=== PATIENT | female | born 1945 | race Caucasian/White ===

== ENCOUNTER 2017-04-29 09:17 | Inpatient (IN) | payer MEDICARE ==
[~2017-04-29] VITALS: Ht 157.5 cm; Wt 66.8 kg
[~2017-04-29 09:17] MED LIST: ALPH300T2 PO; ASCO10004 PO; AZEL137S4 NAS; B12 PO; BUPIVACAINE/PF 0.25% ONE; BUPR150T6 PO; CO Q10 PO; DHEA PO; DILT240T PO; EPINEPHRINE 1 MG/ML, 1ML ONE; ESTR1TAB15 PO; GAS X PO; HYDR-3245 PO; INUL1TAB4 PO; KETOROLAC 60 MG/2 ML ONE; LEVO50TA5 PO; LISI-167 PO; MEDR2.5T30 PO; OLOP2.5D EACHEYE; PREVAGEN PO; PSYL3.4P5 PO; ROPIvacaine/PF 0.2%, 20 ML ONE; SENN1TAB67 PO; SODIUM CHLORIDE 0.9% 50 ML ONE; TRANEXAMIC ACID 100 MG/ML, 10ML ONE; VIT1CAPS42 PO
[2017-04-29] MEDS ORDERED: VANCOMYCIN PMX 1GM/200ML 200 ML IV ONE (09:30)
[2017-04-29] MEDS ORDERED: METOPROLOL 1 MG/ML, 5ML IV PRN (10:00)
[2017-04-29] MEDS ORDERED: hydrALAzine 20 MG/ML, 1ML IV PRN (10:00)
[2017-04-29] MEDS ORDERED: LABETALOL 5MG/ML, 20ML IV PRN (10:00)
[2017-04-29] MEDS ORDERED: HYDROcodone/APAP 7.5-325MG/15ML UDC PO PRN (10:00)
[2017-04-29] MEDS ORDERED: EPHEDRINE 50 MG/ML, 1ML IVPush PRN (10:00)
[2017-04-29] MEDS ORDERED: morphine SULFATE 10 MG/ML, 1ML IV PRN (10:00)
[2017-04-29] MEDS ORDERED: FENTANYL PF 100 MCG/2ML IV PRN (10:00)
[2017-04-29] MEDS ORDERED: MIDAZOLAM 1 MG/ML, 2ML IV PRN (10:00)
[2017-04-29] MEDS ORDERED: KETOROLAC 30 MG/1 ML IV PRN (10:00)
[2017-04-29] MEDS ORDERED: OXYcodone 5 MG/5 ML ORAL.SOL UDC PO PRN (10:00)
[2017-04-29] MEDS ORDERED: HYDROmorphone 1 MG/ML, 1ML IV PRN (10:00)
[2017-04-29] MEDS ORDERED: ONDANSETRON 2MG/ML, 2ML IVPush PRN ×2 (10:00→13:30)
[2017-04-29] MEDS ORDERED: METOCLOPRAMIDE 5 MG/ML, 2ML IV PRN (10:00)
[2017-04-29] MEDS ORDERED: MEPERIDINE/PF 25MG/0.5ML IVPush PRN (10:00)
[2017-04-29] MEDS ORDERED: LACTATED RINGERS 1,000 ML IV SCH (10:02)
[2017-04-29 10:03] VITALS: BP 148/68
[2017-04-29] MEDS ORDERED: cloniDINE/PF 100 MCG/ML, 10 ML ONE (10:26)
[2017-04-29] MEDS ORDERED: MIDAZOLAM 1 MG/ML, 2ML ONE ×2 (10:33→10:34)
[2017-04-29] MEDS ORDERED: FENTANYL PF 100 MCG/2ML ONE ×3 (10:33→10:34)
[2017-04-29] MEDS ORDERED: CYCL1DRO EACHEYE (10:53)
[2017-04-29] MEDS ORDERED: BACITRACIN 50,000 UNIT ONE (11:32)
[2017-04-29] MEDS ORDERED: morphine SULFATE/PF 1 MG/ML, 10ML ONE (11:32)
[2017-04-29] MEDS ORDERED: CEFAZOLIN 1,000 MG ONE (11:33)
[2017-04-29] MEDS ORDERED: DEXAMETHASONE 4 MG/ML, 1ML ONE (11:33)
[2017-04-29] MEDS ORDERED: GLYCOPYRROLATE 0.2MG/1ML, 5ML ONE (11:33)
[2017-04-29] MEDS ORDERED: PROPOFOL 10 MG/ML, 20ML ONE (11:33)
[2017-04-29] MEDS ORDERED: ROCURONIUM 10 MG/ML ONE (11:33)
[2017-04-29] MEDS ORDERED: DIPHENHYDRAMINE 25 MG CAPSULE PO PRN (13:30)
[2017-04-29] MEDS ORDERED: ACETAMINOPHEN 325 MG TABLET PO PRN (13:30)
[2017-04-29] MEDS ORDERED: ZOLPIDEM 5MG TABLET PO PRN (13:30)
[2017-04-29] MEDS ORDERED: LORazepam 2 MG/ML, 1ML IVPush PRN (13:30)
[2017-04-29] MEDS ORDERED: VANCOMYCIN PMX 1GM/200ML 200 ML IVPB ONE (13:30)
[2017-04-29] MEDS ORDERED: TRANEXAMIC ACID 100 MG/ML, 10ML IVPB ONE (13:30)
[2017-04-29] MEDS ORDERED: PSYLLIUM PACKET PO PRN (16:00)
[2017-04-29] MEDS ORDERED: TRANEXAMIC ACID 1,000 MG in SODIUM CHLORIDE 0.9% 100 ML IV ONE (16:00)
[2017-04-29] MEDS ORDERED: HYDROcodone/APAP 10/325 MG TABLET PO PRN (16:00)
[2017-04-29] MEDS: D5%-0.45% NACL 1,000 ML IV SCH ×2 (17:32→23:07)
[2017-04-29] MEDS: CEFAZOLIN PMX 1GM/50ML 50 ML IVPB SCH (19:08)
[2017-04-29] MEDS: OXYcodone/APAP 7.5/325MG TABLET PO PRN (22:54)
[2017-04-30 00:07] VITALS: BP 129/68
[2017-04-30] MEDS: OXYcodone/APAP 7.5/325MG TABLET PO PRN ×6 (02:59→23:36)
[2017-04-30] MEDS: CEFAZOLIN PMX 1GM/50ML 50 ML IVPB SCH ×2 (02:59→12:23)
[2017-04-30] MEDS: D5%-0.45% NACL 1,000 ML IV SCH ×5 (03:30→23:30)
[2017-04-30 03:47] VITALS: BP 125/70
[2017-04-30] MEDS: LEVOTHYROXINE 50 MCG TABLET PO SCH (06:25)
[2017-04-30] MEDS: ESTRADIOL 1 MG TABLET PO SCH (07:47)
[2017-04-30] MEDS: DILTIAZEM 240 MG CAP.ER.24H PO SCH (07:47)
[2017-04-30] MEDS: SIMETHICONE 125 MG CHEW TAB PO SCH (07:47)
[2017-04-30] MEDS: LISINOPRIL 20 MG TABLET PO SCH (07:48)
[2017-04-30] MEDS: ASCORBIC ACID 500 MG TABLET PO SCH (07:49)
[2017-04-30] MEDS: MEDROXYPROGESTERONE ACETATE 2.5 MG TABLET PO SCH (07:49)
[2017-04-30] MEDS: SENNA/DOCUSATE TABLET PO SCH (07:50)
[2017-04-30 07:51] VITALS: BP 92/48
[2017-04-30 08:03] VITALS: BP 102/52
[2017-04-30] MEDS ORDERED: VANCOMYCIN PMX 1GM/200ML 200 ML IVPB ONE (10:30)
[2017-04-30 12:47] VITALS: BP 109/60
[2017-04-30] MEDS: ASPIRIN 325 MG TABLET EC PO SCH (18:21)
[2017-04-30] MEDS: morphine SULFATE 10 MG/ML, 1ML IVPush PRN ×2 (19:36→20:57)
[2017-04-30 20:15] VITALS: BP 120/52
[2017-04-30] MEDS: DOCUSATE 100 MG CAPSULE PO SCH (20:17)
[2017-04-30] MEDS: DIAZEPAM 5 MG TABLET PO SCH (20:56)
[2017-05-01] MEDS: OXYcodone/APAP 7.5/325MG TABLET PO PRN ×2 (03:15→08:35)
[2017-05-01] MEDS: morphine SULFATE 10 MG/ML, 1ML IVPush PRN (03:16)
[2017-05-01] MEDS: D5%-0.45% NACL 1,000 ML IV SCH ×3 (03:20→14:22)
[2017-05-01 04:04] VITALS: BP 118/61
[2017-05-01] MEDS: LEVOTHYROXINE 50 MCG TABLET PO SCH (05:06)
[2017-05-01] MEDS: DIAZEPAM 5 MG TABLET PO SCH ×2 (05:07→13:39)
[2017-05-01 07:59] VITALS: BP 125/66
[2017-05-01] MEDS: DILTIAZEM 240 MG CAP.ER.24H PO SCH (08:36)
[2017-05-01] MEDS: ASPIRIN 325 MG TABLET EC PO SCH (08:36)
[2017-05-01] MEDS: MEDROXYPROGESTERONE ACETATE 2.5 MG TABLET PO SCH (08:37)
[2017-05-01] MEDS: ESTRADIOL 1 MG TABLET PO SCH (08:37)
[2017-05-01] MEDS: DOCUSATE 100 MG CAPSULE PO SCH (08:37)
[2017-05-01] MEDS: LISINOPRIL 20 MG TABLET PO SCH (08:37)
[2017-05-01] MEDS: SIMETHICONE 125 MG CHEW TAB PO SCH (08:37)
[2017-05-01] MEDS: ASCORBIC ACID 500 MG TABLET PO SCH (08:38)
[2017-05-01] MEDS: SENNA/DOCUSATE TABLET PO SCH (08:38)
[2017-05-01] MEDS: HYDROcodone/APAP 10/325 MG TABLET PO PRN ×2 (10:40→15:12)
[2017-05-01 13:10] VITALS: BP 116/62
[2017-05-01 15:07] VITALS: BP 118/43
[2017-05-01] MEDS ORDERED: HYDR-3307 PO (16:16)
[2017-05-01] MEDS ORDERED: DIAZ5TAB4 PO (16:21)
== END 2017-05-01 16:45 | disposition home or self-care (01) | DRG 470 ==
LOC: ORIP 09:17 → 4NOR 14:53 → DCLOUNGE 05-01 16:10
PROVIDERS: ADMIT Orthopaedic Surgery; ATTEND Orthopaedic Surgery
PROC: 0SRC0J9 Replacement of Right Knee Joint with Synthetic Substitute, Cemented, Open Approach (ICD-10-PCS; principal; 2017-04-29 11:30)
DX: M17.11 Unilateral primary osteoarthritis, right knee (principal)
CPT/HCPCS: 36415; 85018; C1713; J0171; J0690; J1100; J1885; J2250; J2274; J2704; J2795; J3010; J3370; J3490; C1776; J0735; J2270; J7120

== ENCOUNTER → 2018-10-29 | Outpatient (CLI) | payer MEDICARE ==
[~2018-10-29] MED LIST changes: -BUPIVACAINE/PF 0.25% ONE; +CYCL1DRO EACHEYE; +DIAZ5TAB4 PO; -EPINEPHRINE 1 MG/ML, 1ML ONE; +HYDR-3307 PO; -KETOROLAC 60 MG/2 ML ONE; -ROPIvacaine/PF 0.2%, 20 ML ONE; -SODIUM CHLORIDE 0.9% 50 ML ONE; -TRANEXAMIC ACID 100 MG/ML, 10ML ONE
[2018-10-29 12:25] LABS: BASOPHILS # (AUTO) 0.04 x10^3/uL (0-0.1); BASOPHILS % (AUTO) 1 % (0-1); EOSINOPHILS # (AUTO) 0.06 x10^3/uL (0-0.4); EOSINOPHILS % (AUTO) 1 % (1-7); LYMPHOCYTES # (AUTO) 1.78 x10^3/uL (1-3.4); LYMPHOCYTES % (AUTO) 24 % (22-44); MD NO; MEAN CORPUSCULAR HEMOGLOBIN 31.4 pg (27.0-34.8); MEAN CORPUSCULAR HGB CONC 33.8 g/dL (32.4-35.8); MEAN CORPUSCULAR VOLUME 92.8 fL (80-100); MEAN PLATELET VOLUME 7.7 fL (7.4-10.4); MONOCYTES # (AUTO) 0.41 x10^3/uL (0.2-0.8); MONOCYTES % (AUTO) 5 % (2-9); NEUTROPHILS # (AUTO) 5.21 x10^3/uL (1.8-6.8); NEUTROPHILS % (AUTO) 69 % (42-75); PLATELET COUNT 304 x10^3/uL (130-400); RED BLOOD COUNT 4.85 x10^6/uL (3.82-5.3); RED CELL DISTRIBUTION WIDTH 13.2 % (9.6-15.2)
[2018-10-29 12:44] LABS: ALANINE AMINOTRANSFERASE 24 U/L (12-78); ALBUMIN 3.9 g/dL (3.4-5.0); ANION GAP 5 mmol/L (5-15); CHLORIDE 102 mmol/L (98-107); CREATININE 0.78 mg/dL (0.55-1.02)
[2018-10-29 12:47] LABS: ALKALINE PHOSPHATASE 54 U/L (45-117); BILIRUBIN,TOTAL 0.4 mg/dL (0.2-1.0); TOTAL PROTEIN 7.4 g/dL (6.4-8.2)
== END | disposition home or self-care (01) ==
LOC: STAR 11:18
PROVIDERS: ATTEND Obstetrics & Gynecology Female Pelvic Medicine and Reconstructive Surgery
DX: Z01.818 Encounter for other preprocedural examination (principal); N81.10 Cystocele, unspecified; N81.6 Rectocele; R35.1 Nocturia; R35.0 Frequency of micturition; I10 Essential (primary) hypertension; I42.9 Cardiomyopathy, unspecified
CPT/HCPCS: 36415; 71046; 80053; 85025

== ENCOUNTER 2018-11-03 05:49 | Day surgery (SDC) | payer MEDICARE ==
[~2018-11-03] VITALS: Ht 154.9 cm; Wt 62.3 kg
[2018-11-03] MEDS ORDERED: LACTATED RINGERS 1,000 ML IV SCH ×2 (06:38→10:51)
[2018-11-03 06:39] VITALS: BP 145/71
[2018-11-03] MEDS ORDERED: UBID100C24 PO (06:52)
[2018-11-03] MEDS ORDERED: LEVO50TA5 PO (06:52)
[2018-11-03] MEDS ORDERED: lutein PEG (06:52)
[2018-11-03] MEDS ORDERED: vitamin b12 PO (06:52)
[2018-11-03] MEDS ORDERED: METO50TA4 PO (06:52)
[2018-11-03] MEDS ORDERED: dhea PO (06:52)
[2018-11-03] MEDS ORDERED: LORA0.5T PO (06:52)
[2018-11-03] MEDS ORDERED: prevagen PO (06:52)
[2018-11-03] MEDS ORDERED: HYDR-3245 PO (06:52)
[2018-11-03] MEDS ORDERED: MEDR2.5T30 PO (06:52)
[2018-11-03] MEDS ORDERED: LISI-167 PO (06:52)
[2018-11-03] MEDS ORDERED: ASCO10004 PO (06:52)
[2018-11-03] MEDS ORDERED: OLOP2.5D EACHEYE (06:52)
[2018-11-03] MEDS ORDERED: ASPI-496 PO (06:52)
[2018-11-03] MEDS ORDERED: ESTR1TAB15 PO (06:52)
[2018-11-03] MEDS ORDERED: BUPR150T6 PO (06:52)
[2018-11-03] MEDS ORDERED: INDIGO CARMINE 0.8%, 5ML ONE (07:06)
[2018-11-03] MEDS ORDERED: THROMBIN 20,000 UNIT VIAL TP ONE ×2 (07:06→07:52)
[2018-11-03] MEDS ORDERED: BUPIVACAINE/PF 0.25% ONE ×2 (07:06→08:15)
[2018-11-03] MEDS ORDERED: EPINEPHRINE 1 MG/ML, 1ML ONE ×2 (07:06→08:15)
[2018-11-03] MEDS ORDERED: NEOMY/POLYMYXIN B GU IRR. 1 ML ONE (07:07)
[2018-11-03] MEDS ORDERED: FENTANYL PF 250 MCG/5ML ONE (07:22)
[2018-11-03] MEDS ORDERED: DIAZEPAM 5 MG TABLET PO ONE (07:30)
[2018-11-03] MEDS ORDERED: GABAPENTIN 300 MG CAPSULE PO ONE (07:30)
[2018-11-03] MEDS ORDERED: ACETAMINOPHEN 500 MG TABLET PO ONE (07:30)
[2018-11-03] MEDS ORDERED: DEXAMETHASONE 4 MG/ML, 1ML ONE (07:31)
[2018-11-03] MEDS ORDERED: KETOROLAC 30 MG/1 ML ONE (07:31)
[2018-11-03] MEDS ORDERED: NEOMY/POLYMYXIN B GU IRR. 1 ML IRRIG ONE (07:52)
[2018-11-03] MEDS ORDERED: BUPIVACAINE/PF-EPI 0.25% 1:200K INFIL ONE (07:52)
[2018-11-03] MEDS ORDERED: MIDAZOLAM 1 MG/ML, 2ML IV PRN (08:30)
[2018-11-03] MEDS ORDERED: FENTANYL PF 100 MCG/2ML IV PRN (08:30)
[2018-11-03] MEDS ORDERED: hydrALAzine 20 MG/ML, 1ML IV PRN (08:30)
[2018-11-03] MEDS ORDERED: ALBUTEROL/IPRATROPIUM 2.5MG/0.5MG, 3 ML NPPB PRN (08:30)
[2018-11-03] MEDS ORDERED: OXYcodone 5 MG/5 ML ORAL.SOL UDC PO PRN ×2 (08:30→11:00)
[2018-11-03] MEDS ORDERED: ONDANSETRON 2MG/ML, 2ML IV PRN (08:30)
[2018-11-03] MEDS ORDERED: PROMETHAZINE 25 MG/ML, 1ML IV PRN (08:30)
[2018-11-03] MEDS ORDERED: METOPROLOL 1 MG/ML, 5ML IV PRN (08:30)
[2018-11-03] MEDS ORDERED: MEPERIDINE/PF 25MG/0.5ML IVPush PRN (08:30)
[2018-11-03] MEDS ORDERED: ROCURONIUM 10MG/ML,5ML ONE (09:49)
[2018-11-03] MEDS ORDERED: ONDANSETRON 2MG/ML, 2ML ONE (09:49)
[2018-11-03] MEDS ORDERED: PROPOFOL 10 MG/ML, 20ML ONE (09:49)
[2018-11-03] MEDS ORDERED: CEFAZOLIN 1,000 MG ONE (09:49)
[2018-11-03] MEDS ORDERED: NEOSTIGMINE 1 MG/ML, 10ML ONE (09:49)
[2018-11-03] MEDS ORDERED: GLYCOPYRROLATE 0.2MG/1ML, 5ML ONE (09:49)
[2018-11-03] MEDS ORDERED: HYDROmorphone 2 MG/ML, 1ML ONE (10:44)
[2018-11-03] MEDS ORDERED: OXYcodone 5 MG/5 ML ORAL.SOL UDC ONE (10:44)
[2018-11-03] MEDS: HYDROmorphone 2 MG/ML, 1ML IVPush PRN ×4 (10:47→11:17)
[2018-11-03] MEDS ORDERED: PROMETHAZINE 12.5 MG SUPP PR ONE (11:00)
[2018-11-03] MEDS ORDERED: ONDANSETRON 2MG/ML, 2ML IVPush PRN (11:00)
[2018-11-03] MEDS ORDERED: IBUPROFEN 600 MG TABLET PO PRN (11:00)
== END 2018-11-03 15:45 | disposition home or self-care (01) ==
LOC: OUT 05:49
PROVIDERS: ATTEND Obstetrics & Gynecology Female Pelvic Medicine and Reconstructive Surgery
DX: D25.9 Leiomyoma of uterus, unspecified (principal); N81.4 Uterovaginal prolapse, unspecified; N39.41 Urge incontinence; N32.81 Overactive bladder; I42.9 Cardiomyopathy, unspecified; I10 Essential (primary) hypertension; E78.5 Hyperlipidemia, unspecified; Z87.39 Personal history of other diseases of the musculoskeletal system and connective tissue; Z96.659 Presence of unspecified artificial knee joint; Z98.890 Other specified postprocedural states; Z88.5 Allergy status to narcotic agent
CPT/HCPCS: 57282; 57288; 58542; 88307; 93005; C1771; C1781; J0171; J0690; J1100; J1170; J1885; J2405; J2704; J2710; J3010; J3490; J7120

== ENCOUNTER 2018-12-07 20:48 | Emergency (ER) | payer MEDICARE ==
[~2018-12-07] VITALS: Ht 157.5 cm; Wt 62.7 kg
[~2018-12-07 20:48] MED LIST changes: +ASPI-496 PO; +LORA0.5T PO; +METO50TA4 PO; +UBID100C24 PO; +dhea PO; +lutein PEG; +prevagen PO; +vitamin b12 PO
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
--- NOTE | 2018-12-07 21:35 | NUR ---
PT TO CT
[2018-12-07 22:23] VITALS: BP 146/60
--- NOTE | 2018-12-07 22:24 | NUR ---
pt a&o, resps even and unlabored. pt given dc instructions. pt amb to dc desk with steady gait accompanied by daughter. parvizn at dc.
== END 2018-12-07 22:25 | disposition home or self-care (01) ==
LOC: ED 22:00
DX: S09.8XXA Other specified injuries of head, initial encounter (principal); G89.11 Acute pain due to trauma; M79.642 Pain in left hand; R51 Headache; W19.XXXA Unspecified fall, initial encounter; Y93.89 Activity, other specified; Y92.410 Unspecified street and highway as the place of occurrence of the external cause; Y99.8 Other external cause status
CPT/HCPCS: 70450; 99284